=== PATIENT | male | born 1970 | race Caucasian/White ===

== ENCOUNTER → 2020-06-18 | Outpatient (CLI) | payer BC ==
--- NOTE | 2020-06-22 15:22 | SLEEPHOME ---
DATE: 06/18/2020 ORDERED BY: Zeus Albarran MD Diagnostic home sleep testing was performed due to concern for the obstructive sleep apnea syndrome in this patient with a history of snoring. For testing, a nocturnal T3 respiratory monitoring device was used. Continuous record was made of pulse, oxygen saturation, air flow, chest and abdominal strain, and body position. Nine hours and 59 minutes of data were reviewed. There were 8 hours and 34 minutes marked as time in bed. During the interval marked time in bed, there were 255 respiratory events identified of 10 seconds in duration or greater for a respiratory event index of 29.8. The events were obstructive, 28 mixed and central apneas were seen. Baseline pulse rate was 63 beats per minute. Pulse rate ranged 49 to 87. Baseline saturation was 93%. Saturations fell to 85% and testing was performed in both the supine and nonsupine positions. IMPRESSION: Abnormal home sleep testing with repetitive respiratory events and oxygen desaturations to 85% with a respiratory event index of 298 is consistent with the obstructive sleep apnea syndrome. RECOMMENDATION: The patient should be encouraged to undergo a formal sleep evaluation.
== END ==
LOC: M SLEEP HO 13:30
PROVIDERS: ATTEND Internal Medicine Cardiovascular Disease
DX: R06.83 Snoring (principal)

== ENCOUNTER 2023-10-31 16:22 | Emergency (ER) | payer BC ==
[~2023-10-31] VITALS: Ht 177.8 cm; Wt 115.5 kg
[2023-10-31 16:22] VITALS: TEMP 98.3
[2023-10-31] MEDS ORDERED: JARD1TAB3 (16:50)
[2023-10-31] MEDS ORDERED: IRBE300T25 (16:50)
[2023-10-31] MEDS ORDERED: DOXA4TAB77 (16:50)
[2023-10-31] MEDS ORDERED: DULA4.5P (16:50)
[2023-10-31] MEDS ORDERED: REPA1TAB4 (16:50)
[2023-10-31] MEDS ORDERED: INSULANT SUBQ (16:50)
[2023-10-31] MEDS ORDERED: FENO54TA2 (16:50)
[2023-10-31 17:16] LABS: BASO % 0.5 % (0.0-1.0); EOS # 0.2 10^3/uL (0.0-0.5); EOS % 3.1 % (0.0-3.0); HEMATOCRIT 39.4 % (42.0-52.0); LYMPH % 32.5 % (24.0-44.0); MEAN CORPUSCULAR HEMOGLOBIN 31.1 pg (27.0-33.0); MEAN CORPUSCULAR HGB CONC 35.5 g/dl (32.0-36.5); MEAN CORPUSCULAR VOLUME 87.6 fl (80.0-96.0); MONO # 0.5 10^3/uL (0.0-0.8); MONO % 8.1 % (2.0-8.0); NEUTROPHILS # 3.4 10^3/uL (1.5-8.5); NEUTROPHILS % 55.3 % (36.0-66.0); PLATELET COUNT, AUTOMATED 190 10^3/uL (150-450); WHITE BLOOD COUNT 6.2 10^3/uL (4.0-10.0)
[2023-10-31 17:28] LABS: INR 1.08; PROTHROMBIN TIME 13.7 SECONDS (12.5-14.5)
[2023-10-31 17:44] LABS: LIPASE 31 U/L (12-53)
[2023-10-31 17:46] LABS: ALKALINE PHOSPHATASE 53 U/L (46-116); ALT/SGPT 47 U/L (7.0-40); AST/SGOT 29 U/L (<34); BILIRUBIN,DIRECT 0.3 MG/DL (<0.4); BILIRUBIN,TOTAL 0.9 MG/DL (0.3-1.2); BLOOD UREA NITROGEN 15 MG/DL (9-23); CALCIUM LEVEL 9.4 MG/DL (8.5-10.1); CARBON DIOXIDE LEVEL 27 MMOL/L (20-31); CHLORIDE LEVEL 103 MMOL/L (98-107); CK-MB VALUE MASS 10.3 NG/ML (<3.6); CPK CREATINE PHOSPHOKINASE 415 U/L (46-171); CREATININE FOR GFR 0.61 MG/DL (0.70-1.30); GLOMERULAR FILTRATION RATE > 60.0 (>56); GLUCOSE, FASTING 227 MG/DL (60-100); MB/CK RELATIVE INDEX 2.48 (< OR =4); POTASSIUM SERUM 3.7 MMOL/L (3.5-5.1); SODIUM LEVEL 137 MMOL/L (136-145); TOTAL PROTEIN 6.1 G/DL (5.7-8.2)
[2023-10-31 19:45] LABS: CK-MB VALUE MASS 9.7 NG/ML (<3.6)
[2023-10-31 19:48] LABS: MB/CK RELATIVE INDEX 2.43 (< OR =4)
[2023-10-31 21:00] VITALS: O2SAT 98
[2023-10-31] MEDS ORDERED: ELIQ5TAB PO (21:10)
[2023-10-31 21:15] VITALS: BP 137/72
[2023-10-31] MEDS: APIXABAN 5 MG TAB (ELIQUIS) PO ONE (21:24)
== END 2023-10-31 21:26 | disposition home or self-care (01) ==
LOC: M ED 16:22
DX: I48.91 Unspecified atrial fibrillation (principal); E11.9 Type 2 diabetes mellitus without complications; I10 Essential (primary) hypertension; Z88.8 Allergy status to other drugs, medicaments and biological substances

== ENCOUNTER → 2024-05-26 | Outpatient (CLI) | payer BC ==
[~2024-05-26] MED LIST: DOXA4TAB77; DULA4.5P; ELIQ5TAB PO; FENO54TA2; INSULANT SUBQ; IRBE300T25; JARD1TAB3; REPA1TAB4
== END ==
LOC: M SLEEP HO 11:05
PROVIDERS: ATTEND Physician Assistant
DX: G47.33 Obstructive sleep apnea (adult) (pediatric) (principal); R40.0 Somnolence; R06.83 Snoring

== ENCOUNTER → 2024-09-12 | Outpatient (CLI) | payer BC | LOC: M SLEEP 20:00 | PROVIDERS: ATTEND Physician Assistant | DX: G47.33 Obstructive sleep apnea (adult) (pediatric) (principal) ==